=== PATIENT | female | born 1950 | race Two or more races ===

== ENCOUNTER → 2016-10-08 | Day surgery (SDC) | payer MEDICARE ==
[~2016-10-08] VITALS: Ht 154.9 cm; Wt 49.5 kg
[~2016-10-08] MED LIST: AMAR4TAB PO; ASPI81TA11 PO; ATOR20TA15 PO; BUPIVACAINE HCL PF 0.5% 30 ML VIAL ONE; CARV6.252 PO; CHLORHEXIDINE GLUCONATE 2 % 1 PACK (2 CLOTHS) TOPICAL PRN; CLINDAMYCIN 600 MG/NS 100 ML IV PRN; CLINDAMYCIN PHOS 900 MG/6 ML VIAL ONE; DEXAMETHASONE SOD PHOS 4 MG/ML VIAL ONE; DEXT 5%-NACL 0.45% 1000 ML INJ 1,000 ML IV SCH; FAMOTIDINE 20 MG/2 ML VIAL ONE; IBUP800T23 PO; INSULIN HUMAN REGULAR 1,000 UNITS/10 ML VIAL SQ PRN; LACTATED RINGER'S 1000 ML IV PRN; LEVEMIR SQ; LIPI10TA PO; METOPROLOL TARTRATE 25 MG TAB PO PRN; MIDAZOLAM HCL 2 MG/2 ML VIAL ONE; NOVOLOGP2 SQ; ONDANSETRON HCL 4 MG/2 ML VIAL IV PUSH ONE; POVIDONE IODINE 10% OINT 1 PACKET ONE; POVIDONE IODINE 5% (ANTISEPSIS KIT) 4 APPLICATIONS EACH NARE PRN; PROPOFOL 200 MG/20 ML AMP IV ONE; SODIUM CHLORID 0.9% 500 ML IV PRN; SODIUM CHLORIDE 0.9% INJ 100 ML ONE
[2016-10-08 07:20] VITALS: BP 150/71; PULSE 73; RESP 16; TEMP 97.7; O2SAT 99
[2016-10-08 07:49] LABS: MEAN CELL VOLUME 90.8 FL (80.0-100.0); MEAN CORPUSCULAR HEMOGLOBIN 30.1 PG (27.0-34.0); MEAN CORPUSCULAR HGB CONC 33.2 % (32.0-36.0); PLATELET COUNT 159 TH/MM3 (150-450); RED BLOOD COUNT 4.07 MIL/MM3 (4.00-5.30); RED CELL DISTRIBUTION WIDTH 13.2 % (11.6-17.2); REVIEW FLAG FINAL; WHITE BLOOD COUNT 4.6 TH/MM3 (4.0-11.0)
--- NOTE | 2016-10-08 07:59 | HP.UPD ---
H&P Update Date: Oct 08, 2016 Note The Pre-Admit History and Physical Examination regarding the above named patient was reviewed (including, but not limited to, vital signs, medications, allergies, co-morbid conditions), and upon re-examination it is noted that: Indicated with "X" x - the patient's condition has not significantly changed since the last examination. [] - the patient's condition has changed since the last examination. Changes: Shell Cesar MD Oct 08, 2016 07:59
[2016-10-08 09:35] VITALS: PULSE 80
--- NOTE | 2016-10-08 10:04 | HHI.PR ---
Immediate Post Op Note Procedure Date: Oct 08, 2016 Pre Op Diagnosis: (1) Acquired trigger finger (2) Carpal tunnel syndrome Post Op Diagnosis: (1) Acquired trigger finger (2) Carpal tunnel syndrome Surgeon: Shell Cesar [employer] Specialist(s): None Procedure: Open release of the left carpal tunnel. Release of the left index, middle and ring trigger fingers. Anesthesia: General Drains: None Tourniquet time (min at mmHg) 42 minutes at 220 mm Hg. Patient to: PACU Patient Condition: Good Date/Time of Procedure: SEE SURGICAL CARE RECORD Shell Cesar MD Oct 08, 2016 10:03
[2016-10-08 11:05] VITALS: BP 143/85; PULSE 80; RESP 14; TEMP 97.6; O2SAT 100
--- NOTE | 2016-10-08 14:01 | EKG ---
Date Performed: 10/08/2016 Time Performed: 07:48:40 PTAGE: 66 years EKG: Sinus rhythm LEFT VENTRICULAR HYPERTROPHY AND ST-T CHANGE ABNORMAL ECG Compared to PREVIOUS TRACING changes of LVH and ST changes are new PREVIOUS TRACIN09/10/2011 21.3 8 DOCTOR: Zach Masterson Interpretating Date/Time 10/08/2016 13:59:26
--- NOTE | 2016-10-08 22:49 | MP ---
cc: BRO JACOBSON M.D. DATE OF SURGERY 10/08/16 PREOPERATIVE DIAGNOSIS 1. Left carpal tunnel syndrome. 2. Stenosing to synovitis of the left index finger. 3. Stenosing tenosynovitis of the left third finger. 4. Stenosing tenosynovitis of the left ring finger. POSTOPERATIVE DIAGNOSIS 1. Left carpal tunnel syndrome. 2. Stenosing to synovitis of the left index finger. 3. Stenosing tenosynovitis of the left third finger. 4. Stenosing tenosynovitis of the left ring finger. PROCEDURE 1. Open release of the left carpal tunnel 2. Tenovaginotomy of the left index finger. 3. Tenovaginotomy of the left middle finger 4. Tenovaginotomy of the left ring finger ANESTHESIA General SURGEON Jada Jacobson MD INDICATIONS A 58-year-old female with three trigger fingers and a carpal tunnel syndrome. FOINDINGS At the completion of the procedure, the carpal tunnel which was tight was released. In addition, the trigger fingers were released. The index finger had a significant amount of synovitis around the tendons in it and a portion of the synovium was sent off as a specimen. TOURNIQUET TIME 42 minutes PROCEDURE IN DETAIL The patient was seen preoperatively where the sites and side were identified and marked. The patient was then taken to the operating room, placed in a supine position. Her identity was checked against the arm band and the consent form. Site and side confirmed, time-out called prior to beginning the procedure. The left upper extremity was prepped with Hibiclens and draped in usual sterile fashion. The area to be incised was outlined with a marking pen as a longitudinal incision just to the ulnar side of the midline in the proximal palm. An oblique incision was designed over the index finger over the A1 yvette and one single incision was designed for the middle and ring fingers. The arm was exsanguinated and the tourniquet inflated to 220 mmHg. Bupivacaine 0.5% plain was then injected as a median nerve block. A 15 blade was then used to make the incision in the palm down through the skin down to the subcutaneous tissue down through palmar fascia. Small vessels were cauterized with bipolar cautery. Distally, a small hole was poked in the palmar fascia and using the ulnar artery as a guide Guyon's canal was released. The ulnar artery and nerve were retracted ulnarly. The median nerve retracted medially and using the flexor tendon to the ring finger as a guide the transverse carpal ligament was divided. Once the forearm fascia was reached, the scissor was kept in a slightly open position and, using the push technique, the forearm fascia was divided for several centimeters into the distal forearm. The median nerve was then carefully from the roof of the carpal tunnel and synovial attachments were lysed. There was no significant amount of epineurium around the nerve. The wound was then copiously irrigated with saline injected with additional bupivacaine into the soft tissues and then closed with a running 4-0 nylon suture. A new 15 blade was then used to make the incision over the middle and ring fingers down through the skin down to the subcutaneous tissue. Under loupe magnification using spread technique, the sheath to the middle vein was identified, the nerves and surrounding tissue were retracted and the A1 yvette was divided. The proximal pulleys were also divided and the finger was placed in flexion and extension and there was no encumbrance of the tendon. Attention was then turned to the ring finger where using sharp and blunt dissection the tendon sheath was identified. The nerves were retracted as was the soft tissue and the A1 yvette identified. It was then divided sharply. The palmar pulleys were also divided. The finger was put through a full range of motion. There was no encumbrance the tendon. Attention was then turned to the index finger where a 15 blade was used to make an oblique incision over the A1 yvette down through the skin down to the subcutaneous tissue. Under loupe magnification using a spread technique, the tendon sheath was identified. The A1 yvette was then divided. A significant amount of synovium was noted around the tendon and this was removed and sent off as a pathologic specimen. The proximal palmar pulleys were also open. The finger was put through a full range of motion and there was no encumbrance to the range of motion and motion of the tendon itself. All wounds were then copiously irrigated with saline, injected with additional bupivacaine and closed with a running 4-0 nylon suture to each wound. Once the wounds were closed, the tourniquet was released after 42 minutes of tourniquet time. Pressure was applied. After several minutes, there was no evidence of any oozing and a dressing was applied using povidone-iodine ointment, Adaptic, Telfa, 4x4s and hand wrap. The patient was then taken from the operating room to the recovery room in satisfactory condition having tolerated the procedure well. Postoperative instructions include keeping the arm elevated, keeping it clean and dry and returning in several days for follow up. Patient is given a prescription for ibuprofen 800 mg every 8 hours as needed for pain. MD JOYCELYN Billy/ /10:04 AM /10:23 PM
== END | disposition home or self-care (01) ==
LOC: PHSDC 06:57
PROVIDERS: ATTEND Specialist
DX: G56.02 Carpal tunnel syndrome, left upper limb (principal); M65.322 Trigger finger, left index finger; M65.332 Trigger finger, left middle finger; M65.342 Trigger finger, left ring finger; I10 Essential (primary) hypertension; E78.5 Hyperlipidemia, unspecified; E11.9 Type 2 diabetes mellitus without complications; I49.9 Cardiac arrhythmia, unspecified; Z01.810 Encounter for preprocedural cardiovascular examination; Z95.1 Presence of aortocoronary bypass graft; Z79.4 Long term (current) use of insulin; Z79.899 Other long term (current) drug therapy
CPT/HCPCS: 01810; 26055; 36415; 64721; 82948; 85027; 88305; 93005; J1100; J2250; J2405; J3010; J7120